=== PATIENT | male | born 1975 | race Two or more races ===

== ENCOUNTER → 2024-12-08 | Outpatient (CLI) | payer OTHER | END | disposition home or self-care (01) | LOC: Rad HDHVI 08:04 | PROVIDERS: ATTEND Internal Medicine Cardiovascular Disease | DX: I10 Essential (primary) hypertension (principal) | CPT/HCPCS: 93306 ==

== ENCOUNTER → 2024-12-10 | Outpatient (CLI) | payer OTHER ==
[~2024-12-10] VITALS: Ht 167.6 cm; Wt 98.0 kg
--- NOTE | 2024-12-19 14:39 | DVHSR ---
APPROVED REPORT Exam: Nuclear Stress Test Indication: Chest pain Ht: 5 ft 6 in Wt: 216 lbs BSA: 2.07 m2 HR: 73 bpm BP: 149/94 mmHg BMI: 34.85 Rhythm: NSR Medical History Medical History: HTN, Hypercholesterolemia Medications: Benazepril Allergies: No known drug allergies Stress Test Details Stress Test: Exercise stress testing was performed using a Rich protocol. HR Resting HR: 73 bpmMax Heart Rate (APMHR): 173.275031 bpm Max HR Achieved: 148 bpmTarget HR (85% APMHR): 147.460906 bpm % of APMHR: 85.55 Recovery HR: 86 bpm HR response to stress: Normal HR response to stress BP Resting BP: 149/94 mmHg Max BP: 217/86 mmHg Recovery BP: 154/81 mmHg BP response to stress: Resting hypertension- Exaggerated response ECG Resting ECG: Sinus Rhythm Stress ECG: Sinus Tachycardia Arrhythmia: PACs, PVCs Recovery ECG: Sinus Rhythm Clinical Reason for Termination: Fatigue Stress Symptoms: Dyspnea, Fatigue Exercise duration: 8 min 12 sec Exercise capacity: 10.1 METs Dyspnea resolved during recovery. Stress ECG Conclusion NON ISCHEMIC CLINICAL RESPONSE NON ISCHEMIC ECG RESPONSE NO REVERSIBLE DEFECTS CARDIOLITE STRESS IMAGING EF >55% NM EXAM: Myocardial Perfusion REST/STRESS Imaging Protocol: Rest Tc-99m/Stress Tc-99m 1 day Resting Data Rest SPECT myocardial perfusion imaging was performed in supine position 30 minutes following the int ravenous injection of 11 mCi of Tc-99m Sestamibi. Time of rest injection: 812 Time of rest imagin Administration Route: IV Administration Site: Left AC Exercise Stress At peak stress, the patient was injected intravenously with 30.1 mCi of Tc-99m Sestamibi. Time of stress injection: 917 Time of stress imagin Administration Route: IV Administration Site: Left AC Heart Rate at time of stress injection: 141 bpm. Patient continued to exercise for 1 minute(s). Gated Stress SPECT was performed 15 minutes after stress injection. The images were gated to evaluate regional wall motion and calculate left ventricular ejection fracti on. Comments Cardiolite injection at 7 minutes, 30 seconds into test. Study Data Post stress, the left ventricular ejection was >55%.. Nuclear Conclusion NON ISCHEMIC CLINICAL RESPONSE NON ISCHEMIC ECG RESPONSE NO REVERSIBLE DEFECTS CARDIOLITE STRESS IMAGING EF >55%
== END | disposition home or self-care (01) ==
LOC: Rad HDHVI 08:03
PROVIDERS: ATTEND Internal Medicine Cardiovascular Disease
DX: I49.3 Ventricular premature depolarization (principal); R00.0 Tachycardia, unspecified; I49.1 Atrial premature depolarization; I10 Essential (primary) hypertension; I45.9 Conduction disorder, unspecified; E78.00 Pure hypercholesterolemia, unspecified; I45.6 Pre-excitation syndrome
CPT/HCPCS: 78452; 93017; A9500; 96374